=== PATIENT | female | born 1980 | race Two or more races ===

== ENCOUNTER 2018-11-06 10:41 | Observation (INO) | payer OTHER | END 2018-11-06 12:45 | disposition home or self-care (01) | DRG 563 | LOC: LDRP 10:41 | PROVIDERS: ADMIT Obstetrics & Gynecology; ATTEND Obstetrics & Gynecology | DX: O60.03 Preterm labor without delivery, third trimester (principal); O26.893 Other specified pregnancy related conditions, third trimester; M54.9 Dorsalgia, unspecified; O62.9 Abnormality of forces of labor, unspecified; O99.89 Other specified diseases and conditions complicating pregnancy, childbirth and the puerperium; N89.8 Other specified noninflammatory disorders of vagina; Z3A.31 31 weeks gestation of pregnancy | CPT/HCPCS: 59025; 76818; 81002; G0378 ==

== ENCOUNTER 2018-11-08 10:00 | Observation (INO) | payer MEDICAID ==
[2018-11-08] MEDS ORDERED: PREN-96 PO (10:40)
== END 2018-11-08 12:55 | disposition home or self-care (01) | DRG 566 ==
LOC: LDRP 10:00
PROVIDERS: ADMIT Specialist; ATTEND Specialist
DX: O13.3 Gestational [pregnancy-induced] hypertension without significant proteinuria, third trimester (principal); O60.03 Preterm labor without delivery, third trimester; Z3A.31 31 weeks gestation of pregnancy
CPT/HCPCS: 59025; 76818; 81002; G0378

== ENCOUNTER 2018-11-18 16:55 | Observation (INO) | payer OTHER ==
[~2018-11-18] VITALS: Ht 172.7 cm; Wt 101.6 kg
[~2018-11-18 16:55] MED LIST: PREN-96 PO
== END 2018-11-18 20:25 | disposition home or self-care (01) | DRG 566 ==
LOC: LDRP 16:55
PROVIDERS: ADMIT Obstetrics & Gynecology; ATTEND Obstetrics & Gynecology
DX: O00.01 Abdominal pregnancy with intrauterine pregnancy (principal); Z3A.33 33 weeks gestation of pregnancy
CPT/HCPCS: 59025; 76818; 81002; G0378

== ENCOUNTER 2018-11-26 12:00 | Observation (INO) | payer OTHER | END 2018-11-26 13:55 | disposition home or self-care (01) | DRG 566 | LOC: LDRP 12:00 | PROVIDERS: ADMIT Specialist; ATTEND Specialist | DX: O13.3 Gestational [pregnancy-induced] hypertension without significant proteinuria, third trimester (principal); O60.03 Preterm labor without delivery, third trimester; O09.523 Supervision of elderly multigravida, third trimester; O26.893 Other specified pregnancy related conditions, third trimester; N89.8 Other specified noninflammatory disorders of vagina; Z3A.34 34 weeks gestation of pregnancy | CPT/HCPCS: 59025; 76818; 81002; G0378 ==

== ENCOUNTER 2019-01-02 00:35 | Inpatient (IN) | payer MEDICAID | END 2019-01-03 13:12 | disposition home or self-care (01) | LOC: LDRP 00:35 | DX: O80 Encounter for full-term uncomplicated delivery (principal); O75.5 Delayed delivery after artificial rupture of membranes; Z3A.39 39 weeks gestation of pregnancy ==